=== PATIENT | male | born 2005 | race Caucasian/White ===

== ENCOUNTER 2024-07-22 15:41 | Day surgery (SDC) | payer OTHER ==
[2024-07-22] MEDS ORDERED: methylPREDNISolone acetate IM ONE (15:42)
[2024-07-22] MEDS ORDERED: BUPIVACAINE 0.5% VIAL IJ ONE (15:42)
[2024-07-22] MEDS ORDERED: LIDOCAINE HCL 1% AMPUL 5 ML IJ ONE (15:42)
--- NOTE | 2024-07-22 18:28 | XRAY ---
Indication: Right shoulder subacromial bursa injection. Intraoperative fluoroscopy provided for 26 seconds. 2 digital spot image submitted for interpretation demonstrates needle tip projecting over right subacromial bursa. Small amount of contrast injected for needle tip placement. Correlate with intraoperative findings/report.
--- NOTE | 2024-07-22 18:30 | XRAY ---
26 seconds of fluoroscopy were used in surgery for a right subacromial bursa injection.
== END 2024-07-22 17:55 ==
LOC: SDC-PAIN 15:41
PROVIDERS: ATTEND Psychiatry & Neurology Pain Medicine
DX: M75.51 Bursitis of right shoulder (principal)
CPT/HCPCS: 20610; 73030; 77002; J1010; Q9966